=== PATIENT | male | born 1990 | race Two or more races ===

== ENCOUNTER 2024-06-24 21:05 | Emergency (ER) | payer OTHER ==
[~2024-06-24] VITALS: Ht 177.8 cm; Wt 108.9 kg
[2024-06-24] MEDS ORDERED: KETOROLAC TROMETHAMINE 30 MG INJ ONE (21:29)
[2024-06-24] MEDS: KETOROLAC TROMETHAMINE 30 MG INJ IM ONE (21:34)
[2024-06-24] MEDS ORDERED: NAPR-1009 PO (22:20)
[2024-06-24] MEDS ORDERED: CYCL10TA9 PO (22:20)
[2024-06-24 22:36] VITALS: BP 172/105; O2SAT 99
== END 2024-06-24 22:30 | disposition home or self-care (01) ==
LOC: ER 21:27
DX: S39.012A Strain of muscle, fascia and tendon of lower back, initial encounter (principal); S83.91XA Sprain of unspecified site of right knee, initial encounter; R03.0 Elevated blood-pressure reading, without diagnosis of hypertension; M25.551 Pain in right hip; M25.552 Pain in left hip; G89.29 Other chronic pain; E66.9 Obesity, unspecified; Z68.34 Body mass index [BMI] 34.0-34.9, adult; W01.0XXA Fall on same level from slipping, tripping and stumbling without subsequent striking against object, initial encounter; Y93.89 Activity, other specified; Y92.89 Other specified places as the place of occurrence of the external cause; Y99.8 Other external cause status
CPT/HCPCS: 99284; 72100; 72170; 73560; 96372; J1885; A4606; A4663